=== PATIENT | male | born 1990 | race Caucasian/White ===

== ENCOUNTER 2018-04-05 18:38 | Emergency (ER) | payer OTHER ==
[~2018-04-05] VITALS: Ht 193 cm; Wt 100.0 kg
[~2018-04-05 18:38] MED LIST: MOME17I
[2018-04-05 18:51] VITALS: BP 142/83; PULSE 75; RESP 18; TEMP 98.9; O2SAT 99
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
[2018-04-05] MEDS ORDERED: ROBA750T PO (22:32)
[2018-04-05] MEDS ORDERED: MOBI15TA PO (22:32)
== END 2018-04-05 22:47 | disposition home or self-care (01) ==
LOC: NEPD 18:38
DX: S16.1XXA Strain of muscle, fascia and tendon at neck level, initial encounter (principal); S29.019A Strain of muscle and tendon of unspecified wall of thorax, initial encounter; S39.012A Strain of muscle, fascia and tendon of lower back, initial encounter; S46.912A Strain of unspecified muscle, fascia and tendon at shoulder and upper arm level, left arm, initial encounter; F12.90 Cannabis use, unspecified, uncomplicated; F17.200 Nicotine dependence, unspecified, uncomplicated; V49.40XA Driver injured in collision with unspecified motor vehicles in traffic accident, initial encounter
CPT/HCPCS: 72040; 72072; 72100; 73030; 99284